=== PATIENT | male | born 1995 | race African-American/Black ===

== ENCOUNTER 2021-03-13 02:51 | Emergency (ER) | payer SELFPAY ==
[~2021-03-13] VITALS: Ht 185.4 cm; Wt 68.2 kg
[2021-03-13 03:58] LABS: BASO % 1 % (0-3); EOS # 0.1 x10^3/uL (0.0-0.7); EOS % 2 % (0-3); HEMATOCRIT 34.5 % (39.0-53.0); HEMOGLOBIN 11.1 g/dL (13.0-17.5); LYMPH % 36 % (24-48); MEAN CORPUSCULAR HEMOGLOBIN 24 pg (25-35); MEAN CORPUSCULAR HGB CONC 32 g/dL (31-37); MEAN CORPUSCULAR VOLUME 75 fL (79-100); MONO # 0.4 x10^3/uL (0.0-1.1); MONO % 7 % (0-9); NEUT % 54 % (31-73); PLATELET COUNT 385 x10^3/uL (140-400); RED BLOOD COUNT 4.62 x10^6/uL (4.30-5.70); RED CELL DISTRIBUTION WIDTH 18.9 % (11.5-14.5); WHITE BLOOD COUNT 5.6 x10^3/uL (4.0-11.0)
[2021-03-13 04:09] LABS: CALCIUM 8.4 mg/dL (8.5-10.1); CREATININE 1.1 mg/dL (0.7-1.3); GFR 97.9
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
[2021-03-13] MEDS ORDERED: MORPHINE SULFATE 4 MG/ML INJ. IVP ONE (07:00)
[2021-03-13] MEDS ORDERED: IOHEXOL 350 MG/ML 100 ML VIAL. IV ONE (07:15)
[2021-03-13] MEDS ORDERED: CONTRAST GIVEN. MC PRN (07:30)
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
[2021-03-13] MEDS ORDERED: ACETAMINOPHEN 500 MG TABLET PO ONE (10:00)
[2021-03-13 10:03] VITALS: BP 114/55
[2021-03-13] MEDS ORDERED: NAPR-682 PO (10:05)
== END 2021-03-13 10:40 | disposition home or self-care (01) ==
LOC: ER 02:51
DX: R22.41 Localized swelling, mass and lump, right lower limb (principal); R51.9 Headache, unspecified
CPT/HCPCS: 36415; 75635; 80048; 85025; 93971; 96374; 99285; J2270; Q9967

== ENCOUNTER 2021-05-23 17:25 | Emergency (ER) | payer MEDICAID ==
[~2021-05-23] VITALS: Ht 185.4 cm; Wt 72.7 kg
[~2021-05-23 17:25] MED LIST: NAPR-682 PO
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
[2021-05-23 21:57] LABS: INFLUENZA A PATIENT NEGATIVE (NEGATIVE); INFLUENZA B PATIENT NEGATIVE (NEGATIVE)
[2021-05-23 23:00] LABS: BASO % 1 % (0-3); EOS % 1 % (0-3); HEMATOCRIT 37.3 % (39.0-53.0); HEMOGLOBIN 11.9 g/dL (13.0-17.5); LYMPH # 1.3 x10^3/uL (1.0-4.8); LYMPH % 26 % (24-48); MEAN CORPUSCULAR HEMOGLOBIN 24 pg (25-35); MEAN CORPUSCULAR HGB CONC 32 g/dL (31-37); MEAN CORPUSCULAR VOLUME 76 fL (79-100); MONO # 0.9 x10^3/uL (0.0-1.1); MONO % 17 % (0-9); NEUT # 2.8 x10^3/uL (1.8-7.7); NEUT % 55 % (31-73); PLATELET COUNT 283 x10^3/uL (140-400); RED BLOOD COUNT 4.94 x10^6/uL (4.30-5.70); RED CELL DISTRIBUTION WIDTH 18.4 % (11.5-14.5); WHITE BLOOD COUNT 5.1 x10^3/uL (4.0-11.0)
[2021-05-23 23:05] LABS: CALCIUM 8.2 mg/dL (8.5-10.1); CREATININE 1.1 mg/dL (0.7-1.3); GFR 97.9
[2021-05-23 23:06] LABS: POTASSIUM 4.1 mmol/L (3.5-5.1)
[2021-05-23 23:13] LABS: ALBUMIN 3.1 g/dL (3.4-5.0); TOTAL BILIRUBIN 0.2 mg/dL (0.2-1.0); TOTAL PROTEIN 6.3 g/dL (6.4-8.2)
[2021-05-23] MEDS ORDERED: CONTRAST GIVEN. MC PRN (23:30)
--- NOTE | 2021-05-23 23:35 | RAD ---
CTA Chest with contrast: Clinical History: Reason: hx dvt, c/o hemoptysis. Axial helical images of the chest were obtained after the administration of 100 cc of IV Omni 350 and timed appropriately for a pulmonary arterial study. Conventional axial reconstruction was performed in addition to coronal, sagittal and bilateral oblique MIP (maximum intensity projection). This margot dy was ordered to detect possible pulmonary embolism. There are no filling defects to suggest pulmonary embolism. The lungs and pleural margins are clear. There is no mediastinal or hilar lymphadenopathy. The thoracic aorta appears normal. Impression: 1. No evidence of pulmonary embolism. 2. No significant findings. PQRS Compliance Statement: One or more of the following individualized dose reduction techniques were utilized for this examinat ion: 1. Automated exposure control 2. Adjustment of the mA and/or kV according to patient size 3. Use of iterative reconstruction technique Electronically signed by: Chao Angel III, MD (05/23/2021 11:33 PM) [facility]
[2021-05-23] MEDS ORDERED: ALBU2.5V8 IH (23:39)
[2021-05-23] MEDS ORDERED: BENZ-8 PO (23:39)
[2021-05-23] MEDS ORDERED: IOHEXOL 350 MG/ML 100 ML VIAL. IV ONE (23:45)
[2021-05-23 23:56] VITALS: BP 117/66
--- NOTE | 2021-05-24 11:27 | NUR ---
IP: Informed pt of positive covid test and the need to quarantine for 10 days. Pt verbalized understanding.
== END 2021-05-24 00:14 | disposition home or self-care (01) ==
LOC: ER 17:25
DX: U07.1 COVID-19 (principal)
CPT/HCPCS: 36415; 71275; 80053; 85025; 87070; 87804; 87880; 99285; Q9967; U0003; U0005

== ENCOUNTER 2021-07-06 23:13 | Emergency (ER) | payer MEDICAID ==
[~2021-07-06] VITALS: Ht 182.9 cm; Wt 72.2 kg
[~2021-07-06 23:13] MED LIST changes: +ALBU2.5V8 IH; +BENZ-8 PO
[2021-07-06] MEDS ORDERED: CONTRAST GIVEN. MC PRN (23:45)
[2021-07-06 23:58] LABS: BASO % 1 % (0-3); EOS # 0.1 x10^3/uL (0.0-0.7); EOS % 1 % (0-3); HEMOGLOBIN 12.9 g/dL (13.0-17.5); LYMPH # 2.7 x10^3/uL (1.0-4.8); LYMPH % 37 % (24-48); MEAN CORPUSCULAR HEMOGLOBIN 26 pg (25-35); MEAN CORPUSCULAR HGB CONC 33 g/dL (31-37); MEAN CORPUSCULAR VOLUME 78 fL (79-100); MONO # 0.6 x10^3/uL (0.0-1.1); MONO % 8 % (0-9); NEUT # 3.9 x10^3/uL (1.8-7.7); NEUT % 53 % (31-73); PLATELET COUNT 381 x10^3/uL (140-400); RED BLOOD COUNT 5.03 x10^6/uL (4.30-5.70); RED CELL DISTRIBUTION WIDTH 17.5 % (11.5-14.5); WHITE BLOOD COUNT 7.2 x10^3/uL (4.0-11.0)
[2021-07-07] MEDS ORDERED: KETOROLAC 30 MG/ML VIAL. IVP ONE
[2021-07-07] MEDS ORDERED: NEOMY/BACITR/POLYMYXIN OINT PACKET. TP ONE
[2021-07-07] MEDS ORDERED: IV NORMAL SALINE 1000ML BAG 1,000 ML IV ONE
[2021-07-07 00:11] LABS: CALCIUM 8.7 mg/dL (8.5-10.1); CREATININE 1.1 mg/dL (0.7-1.3); GFR 97.9; POTASSIUM 3.4 mmol/L (3.5-5.1)
[2021-07-07 00:17] LABS: ALBUMIN 3.9 g/dL (3.4-5.0); ALBUMIN/GLOBULIN RATIO 0.9 (1.0-1.7); MAGNESIUM 2.5 mg/dL (1.8-2.4); TOTAL BILIRUBIN 0.4 mg/dL (0.2-1.0); TOTAL PROTEIN 8.1 g/dL (6.4-8.2)
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
[2021-07-07] MEDS ORDERED: IOHEXOL 300 MG/ML 100ML VIAL. IV ONE (00:30)
[2021-07-07] MEDS ORDERED: MUPI22OI2 TP (01:01)
[2021-07-07] MEDS ORDERED: CLIN-94 PO (01:01)
[2021-07-07] MEDS ORDERED: HYDR-2761 PO (01:01)
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
[2021-07-07 01:15] VITALS: BP 108/59
[2021-07-07] MEDS ORDERED: CLINDAMYCIN HCL 150 MG CAPSULE. PO ONE (02:00)
[2022-06-06] MEDS ORDERED: CLINDAMYCIN 600MG PREMIX 50 ML IV ONE
== END 2021-07-07 01:37 | disposition home or self-care (01) ==
LOC: ER 23:13
DX: S70.321A Blister (nonthermal), right thigh, initial encounter (principal); E87.2 Acidosis; Z87.891 Personal history of nicotine dependence; X58.XXXA Exposure to other specified factors, initial encounter; Y93.89 Activity, other specified; Y92.89 Other specified places as the place of occurrence of the external cause; Y99.8 Other external cause status
CPT/HCPCS: 36415; 73701; 80053; 83605; 83735; 85025; 87040; 96361; 96374; 99285; J1885; J7030; Q9967